=== PATIENT | female | born 1950 | race Caucasian/White ===

== ENCOUNTER 2021-05-18 12:27 | Inpatient (IN) | payer MEDICARE, OTHER ==
[~2021-05-18] VITALS: Ht 177.8 cm; Wt 73.5 kg
[~2021-05-18 12:27] MED LIST: Motrin,Rufen800 MG PO; NORCO 5-325 TA1 EACH PO; PREDNISONE10 MG PO
[2021-05-18 12:35] VITALS: BP 101/76
[2021-05-18 13:26] LABS: BASO # 0.1 10*3/uL (0.0-0.1); BASO % 0.9 % (0.0-1.0); EOS # 0.3 10*3/uL (0.0-0.4); EOS % 3.6 % (1.0-4.0); HEMATOCRIT 32.1 % (37.0-47.0); LYMPH # 1.1 10*3/uL (1.3-4.4); LYMPH % 13.9 % (27.0-41.0); MEAN CELL VOLUME 98.8 fl (81.0-99.0); MEAN CORPUSCULAR HGB 31.4 pg (27.0-31.0); MEAN CORPUSCULAR HGB CONC 31.8 g/dl (33.0-37.0); MEAN PLATELET VOLUME 10.6 fl (9.6-12.3); MONO # 1.1 10*3/uL (0.1-1.0); MONO % 13.5 % (3.0-9.0); NEUT # 5.4 10*3/uL (2.3-7.9); NEUT % 67.8 % (47.0-73.0); PLATELET COUNT AUTOMATED 267 10*3/uL (130-400); RED BLOOD COUNT 3.25 10*6/uL (4.10-5.10); RED CELL DISTRI WIDTH 14.6 % (0-14.5)
[2021-05-18 13:45] LABS: ALBUMIN 2.7 gm/dl (3.1-4.5); CREATININE 3.69 mg/dL (0.55-1.02); POTASSIUM 3.3 mmol/L (3.5-5.1); TOTAL PROTEIN 6.9 gm/dL (6.4-8.2); TROPONIN I 0.03 ng/ml (<0.045)
[2021-05-18 14:22] VITALS: BP 122/54
[2021-05-18 16:46] VITALS: BP 116/60
[2021-05-18 17:30] VITALS: BP 132/69
[2021-05-18] MEDS ORDERED: Coumadin2.5 MG PO (19:17)
[2021-05-18] MEDS ORDERED: LOPRESSOR50 M1 PO (19:18)
[2021-05-18] MEDS ORDERED: BUMETANIDE0.5 MG PO (19:19)
[2021-05-18] MEDS ORDERED: SODIUM BICARBO650 MG PO (19:20)
[2021-05-18] MEDS ORDERED: BUMETANIDE2 MG PO (19:20)
[2021-05-18] MEDS ORDERED: NATURE'S BLEND F1 MG PO (19:21)
[2021-05-18 20:00] VITALS: BP 113/64
[2021-05-18 20:32] LABS: BILIRUBIN Negative (Negative); BLOOD 2+ (Negative); CLARITY Cloudy (Clear); COLOR Yellow (Yellow); GLUCOSE Negative (Negative); KETONE Negative (Negative); LEUKO ESTERASE 3+ (Negative); NITRITE Negative (Negative); PH 6.5 (4.5-8.0); UROBILINOGEN 0.2 E.U./dl (0.0-1.0)
[2021-05-18 20:39] LABS: BACTERIA 2+; WBC TNTC wbc/hpf (0-5)
[2021-05-18 20:41] LABS: URINE CREATININE RANDOM 29.8 mg/dL
[2021-05-18] MEDS ORDERED: TYLENOL EXTRA500 MG PO (21:45)
[2021-05-18] MEDS ORDERED: ZOFRAN4 MG PO (21:47)
[2021-05-18] MEDS ORDERED: BACTRIM 400-801 EACH PO (21:47)
[2021-05-18 23:54] VITALS: BP 132/75
[2021-05-19 06:10] LABS: ALBUMIN 2.6 gm/dl (3.1-4.5); CREATININE 3.83 mg/dL (0.55-1.02); POTASSIUM 3.9 mmol/L (3.5-5.1); TOTAL PROTEIN 6.7 gm/dL (6.4-8.2)
[2021-05-19 06:15] LABS: BASO # 0.1 10*3/uL (0.0-0.1); BASO % 1.3 % (0.0-1.0); EOS # 0.5 10*3/uL (0.0-0.4); EOS % 6.9 % (1.0-4.0); HEMATOCRIT 30.1 % (37.0-47.0); LYMPH # 1.2 10*3/uL (1.3-4.4); LYMPH % 15.2 % (27.0-41.0); MEAN CELL VOLUME 100.3 fl (81.0-99.0); MEAN CORPUSCULAR HGB 31.3 pg (27.0-31.0); MEAN CORPUSCULAR HGB CONC 31.2 g/dl (33.0-37.0); MEAN PLATELET VOLUME 10.6 fl (9.6-12.3); MONO # 1.1 10*3/uL (0.1-1.0); MONO % 14.5 % (3.0-9.0); NEUT # 4.9 10*3/uL (2.3-7.9); NEUT % 61.7 % (47.0-73.0); PLATELET COUNT AUTOMATED 283 10*3/uL (130-400); RED CELL DISTRI WIDTH 14.8 % (0-14.5); WHITE BLOOD COUNT 7.9 10*3/uL (4.8-10.8)
[2021-05-19 06:21] LABS: INTERNATIONAL NORM RATIO 1.7 (2.0-3.5)
[2021-05-19 07:05] LABS: FERRITIN 445.9 ng/mL (10.0-291.0); VITAMIN D, 25-HYDROXY 39.3 ng/mL (30-100)
[2021-05-19 07:06] LABS: PTH INTACT 91.8 pg/mL (18.5-88.0)
[2021-05-19 08:00] VITALS: BP 132/69
[2021-05-19 12:00] VITALS: BP 121/63
[2021-05-19 16:00] VITALS: BP 130/70
[2021-05-19 20:00] VITALS: BP 138/60
[2021-05-20] VITALS: BP 129/79
[2021-05-20 06:54] LABS: INTERNATIONAL NORM RATIO 1.8 (2.0-3.5)
[2021-05-20 07:01] LABS: CREATININE 3.74 mg/dL (0.55-1.02)
[2021-05-20 08:00] VITALS: BP 133/69
[2021-05-20 12:00] VITALS: BP 109/65
[2021-05-20 16:00] VITALS: BP 110/54
[2021-05-20 20:00] VITALS: BP 131/71
[2021-05-21] VITALS: BP 133/66
[2021-05-21 06:13] LABS: BASO # 0.1 10*3/uL (0.0-0.1); BASO % 1.7 % (0.0-1.0); EOS # 0.6 10*3/uL (0.0-0.4); EOS % 9.9 % (1.0-4.0); HEMATOCRIT 29.1 % (37.0-47.0); LYMPH # 1.3 10*3/uL (1.3-4.4); LYMPH % 21.3 % (27.0-41.0); MEAN CELL VOLUME 100.7 fl (81.0-99.0); MEAN CORPUSCULAR HGB 30.8 pg (27.0-31.0); MEAN CORPUSCULAR HGB CONC 30.6 g/dl (33.0-37.0); MEAN PLATELET VOLUME 10.5 fl (9.6-12.3); MONO # 0.7 10*3/uL (0.1-1.0); MONO % 11.4 % (3.0-9.0); NEUT # 3.3 10*3/uL (2.3-7.9); NEUT % 55.4 % (47.0-73.0); PLATELET COUNT AUTOMATED 296 10*3/uL (130-400); RED BLOOD COUNT 2.89 10*6/uL (4.10-5.10); RED CELL DISTRI WIDTH 14.6 % (0-14.5)
[2021-05-21 06:25] LABS: ALBUMIN 2.8 gm/dl (3.1-4.5); CREATININE 3.63 mg/dL (0.55-1.02); POTASSIUM 3.4 mmol/L (3.5-5.1); TOTAL PROTEIN 6.6 gm/dL (6.4-8.2)
[2021-05-21 06:42] LABS: INTERNATIONAL NORM RATIO 1.9 (2.0-3.5)
[2021-05-21 08:00] VITALS: BP 120/50
[2021-05-21] MEDS ORDERED: AUGMENTIN 875-875 MG PO (09:53)
[2021-05-21 11:32] VITALS: BP 111/59
[2021-05-21 12:00] VITALS: BP 117/66
[2021-05-21] MEDS ORDERED: BUMETANIDE2 MG PO (12:35)
[2021-05-21] MEDS ORDERED: FEOSOL325 MG PO (12:37)
== END 2021-05-21 19:12 | disposition home health service (06) | DRG 291 ==
LOC: ED 12:27 → EDHOLD 15:19 → 5E 15:19
PROVIDERS: Emergency Medicine; Internal Medicine Nephrology; ADMIT Internal Medicine; ATTEND Internal Medicine
DX: I13.0 Hypertensive heart and chronic kidney disease with heart failure and stage 1 through stage 4 chronic kidney disease, or unspecified chronic kidney disease (principal); I50.33 Acute on chronic diastolic (congestive) heart failure; C34.90 Malignant neoplasm of unspecified part of unspecified bronchus or lung; N17.9 Acute kidney failure, unspecified; N18.4 Chronic kidney disease, stage 4 (severe); C79.51 Secondary malignant neoplasm of bone; E44.0 Moderate protein-calorie malnutrition; I48.21 Permanent atrial fibrillation; N39.0 Urinary tract infection, site not specified; R62.7 Adult failure to thrive; D50.9 Iron deficiency anemia, unspecified; M89.9 Disorder of bone, unspecified; E87.6 Hypokalemia; D63.8 Anemia in other chronic diseases classified elsewhere; E87.70 Fluid overload, unspecified; Z87.311 Personal history of (healed) other pathological fracture; Z88.6 Allergy status to analgesic agent; Z87.898 Personal history of other specified conditions; Z79.01 Long term (current) use of anticoagulants; Z68.23 Body mass index [BMI] 23.0-23.9, adult

== ENCOUNTER 2021-05-24 07:55 | Emergency (ER) | payer MEDICARE, OTHER ==
[~2021-05-24] VITALS: Ht 167.6 cm; Wt 68.0 kg
[~2021-05-24 07:55] MED LIST changes: +AUGMENTIN 875-875 MG PO; +BACTRIM 400-801 EACH PO; +BUMETANIDE0.5 MG PO; +BUMETANIDE2 MG PO; +Coumadin2.5 MG PO; +FEOSOL325 MG PO; +LOPRESSOR50 M1 PO; +NATURE'S BLEND F1 MG PO; +SODIUM BICARBO650 MG PO; +TYLENOL EXTRA500 MG PO; +ZOFRAN4 MG PO
== END 2021-05-24 10:53 | disposition home or self-care (01) ==
LOC: ED 07:55
DX: T80.89XD Other complications following infusion, transfusion and therapeutic injection, subsequent encounter (principal); S60.222A Contusion of left hand, initial encounter; Z88.6 Allergy status to analgesic agent; Z79.2 Long term (current) use of antibiotics; Z79.899 Other long term (current) drug therapy; Z79.01 Long term (current) use of anticoagulants; Y84.8 Other medical procedures as the cause of abnormal reaction of the patient, or of later complication, without mention of misadventure at the time of the procedure

== ENCOUNTER 2022-02-12 14:32 | Emergency (ER) | payer MEDICARE, OTHER ==
[~2022-02-12] VITALS: Ht 175.2 cm; Wt 61.2 kg
[2022-02-12 15:19] LABS: HEMATOCRIT 35.3 % (37.0-47.0); MEAN CELL VOLUME 92.7 fl (81.0-99.0); MEAN CORPUSCULAR HGB 31.5 pg (27.0-31.0); MEAN PLATELET VOLUME 9.7 fl (9.6-12.3); NUCLEATED RED BLOOD CELL 3.3 % (0.0-0.0); PLATELET COUNT AUTOMATED 256 10*3/uL (130-400); RED BLOOD COUNT 3.81 10*6/uL (4.10-5.10); RED CELL DISTRI WIDTH 13.3 % (0-14.5)
[2022-02-12 15:23] LABS: MANUAL DIFF REFLEX YES
[2022-02-12 15:25] LABS: WHITE BLOOD COUNT 1.2 10*3/uL (4.8-10.8)
[2022-02-12 15:37] LABS: CREATININE 2.4 mg/dL (0.55-1.02); POTASSIUM 3.7 mmol/L (3.5-5.1); TOTAL PROTEIN 6.5 gm/dL (6.4-8.2)
[2022-02-12 16:09] LABS: ATYPICAL LYMPHS 1 % (0-0); BASOPHILS 1 % (0-1); PLATELET SUFFICIENCY NORMAL (NORMAL); TOTAL CELLS COUNTED 100 #CELLS
[2022-02-12 16:35] LABS: BILIRUBIN Negative (Negative); BLOOD 1+ (Negative); CLARITY Clear (Clear); COLOR Yellow (Yellow); GLUCOSE Negative (Negative); KETONE Negative (Negative); LEUKO ESTERASE Trace (Negative); NITRITE Negative (Negative); PH 6.5 (4.5-8.0); SPECIFIC GRAVITY 1.015 (1.001-1.030); UROBILINOGEN 0.2 E.U./dl (0.0-1.0)
[2022-02-12 16:44] LABS: BACTERIA 3+; EPITHELIAL CELLS TNTC
== END 2022-02-13 00:21 | disposition short-term general hospital (02) ==
LOC: ED 14:32
PROVIDERS: Student in an Organized Health Care Education/Training Program
DX: D70.9 Neutropenia, unspecified (principal); N17.9 Acute kidney failure, unspecified; R50.9 Fever, unspecified; Z88.8 Allergy status to other drugs, medicaments and biological substances; Z79.899 Other long term (current) drug therapy

== ENCOUNTER → 2022-03-31 | Outpatient (CLI) | payer MEDICARE, OTHER | END | disposition home or self-care (01) | LOC: CT 11:09 | PROVIDERS: ATTEND Family Medicine | DX: J98.11 Atelectasis (principal); R91.1 Solitary pulmonary nodule; E27.9 Disorder of adrenal gland, unspecified ==